=== PATIENT | male | born 1980 | race Caucasian/White ===

== ENCOUNTER 2020-09-28 19:31 | Outpatient (REF) | payer MEDICARE, MEDICAID, SELFPAY ==
[2020-09-28 20:46] LABS: Calculated LDL 169 mg/dL (<100); Cholesterol 247 mg/dL (<200); HDL Cholesterol 62 mg/dL (40-60); TSH 2.54 uIU/mL (0.36-3.74); Triglyceride 82 mg/dL (<150)
[2020-09-28 20:49] LABS: Hemoglobin A1C 5.5 % (<5.7)
== END 2020-09-28 19:32 | disposition home or self-care (01) ==
LOC: NCHCN 19:31
PROVIDERS: PCP Nurse Practitioner Family; Visit Provider Registered Nurse
DX: E03.9 Hypothyroidism, unspecified (principal); F41.9 Anxiety disorder, unspecified; R21 Rash and other nonspecific skin eruption; R79.89 Other specified abnormal findings of blood chemistry
CPT/HCPCS: 80061; 83036; 84443

== ENCOUNTER 2021-09-03 16:22 | Outpatient (REF) | payer MEDICARE, MEDICAID, SELFPAY ==
[2021-09-03 17:43] LABS: Absolute Basophil Count 0.07 10^3/uL (0.0-0.2); Absolute Eosinophil Count 0.05 10^3/uL (0.0-0.7); Absolute Lymphocyte Count 2.38 10^3/uL (1.2-3.4); Absolute Monocyte Count 0.74 10^3/uL (0.1-0.8); Absolute Neutrophil Count 1.97 10^3/uL (1.2-6.7); Basophils % 1.3; HCT 49.4 % (40.0-50.0); HGB 15.9 g/dL (13.5-17.5); Lymphocytes % 45.6; MCH 30.6 pg (27.0-33.0); MCHC 32.2 % (32.0-36.0); MCV 95.2 fL (80-95); MPV 10.5 fL (8.0-11.0); Monocytes % 14.2; Neutrophils % 37.7; Platelet Count 229 10^3/uL (130-400); RBC 5.19 10^6/uL (4.36-5.78); RDW 14.5 % (11.8-14.1); RDW-SD 50.9 fL; WBC 5.22 10^3/uL (4.4-10.8)
[2021-09-03 17:44] LABS: Immature Grans % 0.2; Nucleated RBC 0 %
[2021-09-03 18:27] LABS: Hemoglobin A1C 5.4 % (<5.7)
[2021-09-03 18:48] LABS: ALT 52 U/L (16-63); AST 29 U/L (15-37); Albumin 3.7 g/dL (3.4-5.0); Alkaline Phosphatase 62 U/L (46-116); Anion Gap 6.1 mmol/L (3-11); BUN 16 mg/dL (7-18); Bilirubin, Total 0.5 mg/dL (0.2-1.0); CO2 29.9 mmol/L (21.0-32.0); Calcium 8.6 mg/dL (8.5-10.1); Calculated LDL 151 mg/dL (<100); Chloride 106 mmol/L (98-107); Cholesterol 228 mg/dL (<200); Glucose 88 mg/dL (74-106); HDL Cholesterol 59 mg/dL (40-60); Potassium 4.8 mmol/L (3.5-5.1); Sodium 142 mmol/L (136-145); TSH (W/Ref FT4) 4.34 uIU/mL (0.36-3.74); Total Protein 7.2 g/dL (6.4-8.2); Triglyceride 93 mg/dL (<150)
[2021-09-03 19:04] LABS: FREE T4 0.91 ng/dL (0.76-1.46)
== END 2021-09-03 16:23 | disposition home or self-care (01) ==
LOC: LBN 16:22
PROVIDERS: PCP Nurse Practitioner Family; Visit Provider Psychiatry & Neurology Psychiatry
DX: F33.3 Major depressive disorder, recurrent, severe with psychotic symptoms (principal); Z79.899 Other long term (current) drug therapy
CPT/HCPCS: 80053; 80061; 83036; 84439; 84443; 85025

== ENCOUNTER 2022-07-01 12:33 | Outpatient (REF) | payer MEDICARE, MEDICAID, SELFPAY ==
[2022-07-01 14:55] LABS: HCT 50.7 % (40.0-50.0); HGB 16.5 g/dL (13.5-17.5); MCH 29.8 pg (27.0-33.0); MCHC 32.5 % (32.0-36.0); MCV 92 fL (80-95); MPV 9.8 fL (8.0-11.0); Platelet Count 236 10^3/uL (130-400); RBC 5.53 10^6/uL (4.36-5.78); RDW 15.1 % (11.8-14.1); RDW-SD 51.5 fL; WBC 5.27 10^3/uL (4.4-10.8)
[2022-07-01 15:14] LABS: ALT 80 U/L (16-63); AST 48 U/L (15-37); Albumin 3.7 g/dL (3.4-5.0); Alkaline Phosphatase 69 U/L (46-116); BUN 14 mg/dL (7-18); Bilirubin, Total 0.5 mg/dL (0.2-1.0); Calcium 8.9 mg/dL (8.5-10.1); Calculated LDL 135 mg/dL (<100); Chloride 103 mmol/L (98-107); Cholesterol 218 mg/dL (<200); Estimated GFR 95.18 (mL/min/1.73m2); Glucose 85 mg/dL (74-106); HDL Cholesterol 68 mg/dL (40-60); Sodium 140 mmol/L (136-145); TSH 5.74 uIU/mL (0.36-3.74); Total Protein 7.5 g/dL (6.4-8.2); Triglyceride 75 mg/dL (<150)
== END 2022-07-01 12:34 | disposition home or self-care (01) ==
LOC: NCHCN 12:33
PROVIDERS: PCP Nurse Practitioner Family; Visit Provider Registered Nurse
DX: E03.9 Hypothyroidism, unspecified (principal); R79.89 Other specified abnormal findings of blood chemistry; F41.8 Other specified anxiety disorders; Z79.899 Other long term (current) drug therapy
CPT/HCPCS: 80053; 80061; 85027; 84443

== ENCOUNTER 2022-10-02 08:47 | Outpatient (REF) | payer MEDICARE, MEDICAID, SELFPAY ==
[2022-10-02 15:46] LABS: ALT 63 U/L (16-63); AST 31 U/L (15-37); Albumin 3.6 g/dL (3.4-5.0); Alkaline Phosphatase 63 U/L (46-116); Bilirubin, Direct 0.1 mg/dL (0.0-0.2); Bilirubin, Total 0.3 mg/dL (0.2-1.0); Total Protein 7.4 g/dL (6.4-8.2)
[2022-10-03 09:20] LABS: HBs Antibody, Quant <3.1 mIU/mL (See Note); Hepatitis B Surface Ab Negative (See Note)
[2022-10-03 09:29] LABS: Hepatitis B Surface Ag Negative (Negative)
[2022-10-03 09:58] LABS: Hepatitis C Ab w Rflx HCV PCR Negative (Negative)
[2022-10-03 10:04] LABS: Hep B Core Antibody Negative (Negative)
== END 2022-10-02 08:48 | disposition home or self-care (01) ==
LOC: NCHCN 08:47
PROVIDERS: PCP Nurse Practitioner Family; Visit Provider Registered Nurse
DX: R94.5 Abnormal results of liver function studies (principal); E03.9 Hypothyroidism, unspecified; Z79.899 Other long term (current) drug therapy
CPT/HCPCS: 80076; 86704; 86706; 86803; 87340; 84443

== ENCOUNTER 2023-04-15 14:02 | Outpatient (REF) | payer MEDICARE, MEDICAID, SELFPAY ==
[2023-04-15 21:06] LABS: Abs Immature Grans 0.02 10^3/uL (0.0-0.06); Absolute Basophil Count 0.08 10^3/uL (0.0-0.2); Absolute Eosinophil Count 0.03 10^3/uL (0.0-0.7); Absolute Lymphocyte Count 2.83 10^3/uL (1.2-3.4); Absolute Monocyte Count 0.62 10^3/uL (0.1-0.8); Absolute Neutrophil Count 3.02 10^3/uL (1.2-6.7); Basophils % 1.2; Eosinophils % 0.5; HCT 45.8 % (40.0-50.0); HGB 15.3 g/dL (13.5-17.5); Immature Grans % 0.3; Lymphocytes % 42.9; MCH 30.6 pg (27.0-33.0); MCHC 33.4 % (32.0-36.0); MCV 92 fL (80-95); MPV 10.3 fL (8.0-11.0); Monocytes % 9.4; Neutrophils % 45.7; Platelet Count 248 10^3/uL (130-400); RDW 14.4 % (11.8-14.1); RDW-SD 48.5 fL
[2023-04-15 21:31] LABS: Hemoglobin A1C 5.5 % (<5.7)
[2023-04-15 21:39] LABS: ALT 42 U/L (16-63); AST 23 U/L (15-37); Albumin 3.7 g/dL (3.4-5.0); Alkaline Phosphatase 76 U/L (46-116); Anion Gap 9.6 mmol/L (3-11); BUN 14 mg/dL (7-18); Bilirubin, Total 0.3 mg/dL (0.2-1.0); CO2 27.4 mmol/L (21.0-32.0); Calcium 9.1 mg/dL (8.5-10.1); Calculated LDL 146 mg/dL (<100); Chloride 103 mmol/L (98-107); Cholesterol 230 mg/dL (<200); Estimated GFR 94.59 (mL/min/1.73m2); Glucose 86 mg/dL (74-106); HDL Cholesterol 55 mg/dL (40-60); Potassium 4.3 mmol/L (3.5-5.1); Sodium 140 mmol/L (136-145); TSH (W/Ref FT4) 1.36 uIU/mL (0.36-3.74); Total Protein 7.4 g/dL (6.4-8.2); Triglyceride 145 mg/dL (<150)
== END 2023-04-15 14:03 | disposition home or self-care (01) ==
LOC: LBN 14:02
PROVIDERS: Psychiatry & Neurology Psychiatry; PCP Nurse Practitioner Family; Visit Provider Family Medicine
DX: F33.3 Major depressive disorder, recurrent, severe with psychotic symptoms (principal); Z79.899 Other long term (current) drug therapy; E03.2 Hypothyroidism due to medicaments and other exogenous substances
CPT/HCPCS: 80053; 80061; 83036; 84443; 85025

== ENCOUNTER 2023-10-10 14:51 | Outpatient (REF) | payer MEDICARE, MEDICAID, SELFPAY ==
[2023-10-10 21:28] LABS: Hemoglobin A1C 5.6 % (<5.7)
[2023-10-10 21:29] LABS: ALT 31 U/L (16-63); AST 27 U/L (15-37); Albumin 3.6 g/dL (3.4-5.0); Alkaline Phosphatase 66 U/L (46-116); Anion Gap 4.6 mmol/L (3-11); BUN 16 mg/dL (7-18); Bilirubin, Total 0.3 mg/dL (0.2-1.0); CO2 30.4 mmol/L (21.0-32.0); Calcium 8.7 mg/dL (8.5-10.1); Calculated LDL 127 mg/dL (<100); Chloride 109 mmol/L (98-107); Cholesterol 204 mg/dL (<200); Estimated GFR 94.59 (mL/min/1.73m2); Glucose 94 mg/dL (74-106); HDL Cholesterol 51 mg/dL (40-60); Potassium 4.5 mmol/L (3.5-5.1); Sodium 144 mmol/L (136-145); TSH 1.59 uIU/Ml (0.36-3.74); Triglyceride 130 mg/dL (<150)
== END 2023-10-10 14:52 | disposition home or self-care (01) ==
LOC: NCHCN 14:51
PROVIDERS: PCP Nurse Practitioner Family; Visit Provider Family Medicine
DX: E03.9 Hypothyroidism, unspecified (principal); R94.5 Abnormal results of liver function studies; R79.89 Other specified abnormal findings of blood chemistry
CPT/HCPCS: 80053; 80061; 83036; 84443

== ENCOUNTER 2025-06-23 16:25 | Outpatient (REF) | payer MEDICARE, MEDICAID, SELFPAY ==
[2025-06-23 21:32] LABS: Abs Immature Grans 0.03 10^3/uL (0.0-0.06); HCT 45.0 % (40.0-50.0); HGB 15.0 g/dL (13.5-17.5); Immature Grans % 0.5 %; MCH 30.5 pg (27.0-33.0); MCHC 33.3 % (32.0-36.0); MCV 92 fL (80-95); MPV 10.0 fL (8.0-11.0); Platelet Count 279 10^3/uL (130-400); RBC 4.92 10^6/uL (4.36-5.78); RDW 14.8 % (11.8-14.1); RDW-SD 49.8 fL; WBC 6.01 10^3/uL (4.4-10.8)
[2025-06-23 21:48] LABS: C-Reactive Protein < 0.50 mg/dL (<=0.50)
[2025-06-23 21:49] LABS: TSH (W/Ref FT4) 3.70 uIU/mL (0.55-4.78)
[2025-06-23 21:51] LABS: ALT 96 U/L (10-49); AST 59 U/L (<34); Albumin 3.8 g/dL (3.2-5.0); Alkaline Phosphatase 92 U/L (46-116); Anion Gap 8.3 mmol/L (3-11); BUN 15 mg/dL (9-23); Bilirubin, Total 0.30 mg/dL (0.2-1.2); CO2 27.7 mmol/L (20.0-31.0); Calcium 8.7 mg/dL (8.3-10.6); Chloride 108 mmol/L (98-107); Glucose 107 mg/dL (74-106); Potassium 4.2 mmol/L (3.5-5.1); Sodium 144 mmol/L (136-145); Total Protein 6.9 g/dL (5.7-8.2)
== END 2025-06-23 16:26 | disposition home or self-care (01) ==
LOC: NCHCN 16:25
PROVIDERS: Visit Provider Family Medicine
DX: M25.40 Effusion, unspecified joint (principal); E03.9 Hypothyroidism, unspecified; R63.5 Abnormal weight gain
CPT/HCPCS: 80053; 82784; 83516; 84443; 85025; 86038; 86140; 86431